=== PATIENT | male | born 1950 | race Caucasian/White ===

== ENCOUNTER 2018-12-09 05:51 | Day surgery (SDC) | payer MEDICARE ==
[~2018-12-09] VITALS: Ht 180.3 cm; Wt 73.1 kg
[~2018-12-09 05:51] MED LIST: ALBU3IS INH; BACL10 PO; Bystolic PO; CHLO25B PO; CLOP75 GT; CLOP75 PO; CLOT10; CLOT10 SUSW; DOC100SO PO; DOCUSATE GT; FERSU220EL PEG; FIBERSOURCE; INSULANI SC; LOSA50 PO; LOSHYD100 PO; LOVA40 PO; METF500 GT; METF500 PO; METO25ER GT; METO25ER PO; MULVITMIND PO; MULVITMINF GT; Mobic15 MG PO; NEBI10 GT; NEBI10 PO; NIFE30ER PO; NITR100CA GT; OXYC1L PO; OXYCODONE; RANI150EL PO; RANITIDINE; TAMS.4ER GT; TAMS.4ER PO; TEMA15 PO; TEMA30 PO; THERA1 EACH PO; [UNRECOGNIZED DRUG - OTHER]
--- NOTE | 2018-12-09 06:50 | NUR ---
[facility]TO [facility] ADMISSION TO UNIT STARTED. History, Chart, Medications and Allergies reviewed before start of procedure.Patient confirms NPO status and agrees with scheduled surgery. Patient States Post-Procedure ride home has been arranged.
--- NOTE | 2018-12-09 10:17 | NUR ---
Pt gave verbal consent to access records on 12/09/2018
== END 2018-12-09 23:03 | disposition home or self-care (01) ==
LOC: ORSCMMR 05:51 → ORD 07:30 → ORSCMMR 07:30
PROVIDERS: Surgery
PROC: 0H88XZZ Division of Buttock Skin, External Approach (ICD-10-PCS; principal; 2018-12-09 07:30)
DX: K61.0 Anal abscess (principal); I10 Essential (primary) hypertension; E11.9 Type 2 diabetes mellitus without complications; I69.365 Other paralytic syndrome following cerebral infarction, bilateral; G82.50 Quadriplegia, unspecified; Z79.899 Other long term (current) drug therapy
CPT/HCPCS: 82947; A9270-GY; J1100; J1885; J1956; J2370; J2405; J2704; J3010; J7120

== ENCOUNTER 2018-12-20 10:11 | Observation (INO) | payer MEDICARE ==
[~2018-12-20] VITALS: Ht 180.3 cm; Wt 71.0 kg
[~2018-12-20 10:11] MED LIST changes: -LOSA50 PO; +LOSARTAN POTAS100 MG PO; -LOVA40 PO; +Lovastatin20 MG PO; -Mobic15 MG PO; -TEMA30 PO
[2018-12-20 10:45] LABS: BASOPHILS ABSOLUTE AUTO 0.02 K/mm3 (0.00-0.23); BASOPHILS PERCENT AUTO 0 % (0-2); EOSINOPHILS PERCENT AUTO 0 % (0-6); Hematocrit 43.8 % (37.0-53.0); IMMATURE GRAN ABSOLUTE AUTO 0.03 K/mm3 (0.00-0.10); IMMATURE GRAN PERCENT AUTO 0 % (0-1); LYMPHOCYTES ABSOLUTE AUTO 0.19 K/mm3 (0.84-5.20); LYMPHOCYTES PERCENT AUTO 2 % (21-46); MONOCYTES ABSOLUTE AUTO 0.28 K/mm3 (0.16-1.47); MONOCYTES PERCENT AUTO 3 % (4-13); Mean Corpuscular HGB 31.1 pg (26.0-34.0); Mean Corpuscular HGB Conc 34.2 g/dL (31.5-36.5); Mean Corpuscular Volume 91 fL (80-100); NEUTROPHILS ABSOLUTE AUTO 8.76 K/mm3 (1.96-9.15); NEUTROPHILS PERCENT AUTO 95 % (41-73); Platelet Count 168 K/mm3 (150-400); RDW Coefficient Variation 11.9 % (11.7-14.2); RDW Standard Deviation 39.8 fL (35.1-46.3); Red Blood Cell Count 4.82 M/mm3 (4.30-5.90); White Blood Cell Count 9.28 K/mm3 (4.00-11.30)
[2018-12-20 11:07] LABS: Alanine Aminotransfer (ALT/SGP 39 U/L (12-78); Albumin, Blood 3.2 g/dL (3.4-5.0); Albumin/Globulin Ratio 1.3 (0.8-1.8); Alk Phos 87 U/L (50-136); Anion Gap 8 mmol/L (6-16); Aspartate Aminotrans (AST/SGOT 36 U/L (12-37); Blood Urea Nitrogen 25 mg/dL (8-24); Bun/Creatinine Ratio 23.4 (12.0-20.0); CO2, Blood 25 mmol/L (21-32); Calcium, Blood 8.1 mg/dL (8.5-10.1); Chloride, Blood 105 mmol/L (98-108); Creatinine, Blood 1.07 mg/dL (0.60-1.20); Globulin, Blood 2.5 g/dL (2.2-4.0); Glomerular Filtration Rate >60 (60-); Glucose, Blood 177 mg/dL (70-99); Potassium, Blood 3.2 mmol/L (3.5-5.5); Sodium, Blood 138 mmol/L (136-145); Total Protein, Blood 5.7 g/dL (6.4-8.2)
[2018-12-20] MEDS ORDERED: Mobic15 MG PO (14:04)
[2018-12-20] MEDS ORDERED: TEMA30 PO (14:04)
--- NOTE | 2018-12-20 18:31 | NUR ---
SHIFT SUMMARY: PATIENT ADMITTED FROM ED APPROX 1515 VIA STRETCHER AND WAS ASSISTED TO BED AND ORIENTED TO ROOM AND UNIT AND CALL LIGHT, AND DAUGHTER AT BEDSIDE. PATIENT DENIES ANY PAIN OR DISCOMFORT. FINE CRACKLES AUSCULTATED IN THE LLL AND DIM IN OTHER LOBES. NO SOB. IV FLIUDS STARTED VIA PERIPHERAL LINE TO LEFT WRIST WITH NO ISSUES. PATIENT IS A/O X 4 AND IS ABLE TO MAKE HIS NEEDS KNOWN.
[2018-12-21 05:58] LABS: BASOPHILS ABSOLUTE AUTO 0.02 K/mm3 (0.00-0.23); BASOPHILS PERCENT AUTO 0 % (0-2); EOSINOPHILS ABSOLUTE AUTO 0.06 K/mm3 (0.00-0.68); EOSINOPHILS PERCENT AUTO 1 % (0-6); Hematocrit 37.1 % (37.0-53.0); Hemoglobin 12.5 g/dL (13.5-17.5); IMMATURE GRAN ABSOLUTE AUTO 0.01 K/mm3 (0.00-0.10); IMMATURE GRAN PERCENT AUTO 0 % (0-1); LYMPHOCYTES ABSOLUTE AUTO 0.84 K/mm3 (0.84-5.20); LYMPHOCYTES PERCENT AUTO 14 % (21-46); MONOCYTES ABSOLUTE AUTO 0.42 K/mm3 (0.16-1.47); MONOCYTES PERCENT AUTO 7 % (4-13); Mean Corpuscular HGB 31.4 pg (26.0-34.0); Mean Corpuscular HGB Conc 33.7 g/dL (31.5-36.5); Mean Corpuscular Volume 93 fL (80-100); Mean Platelet Volume 9.6 fL (9.1-12.4); NEUTROPHILS ABSOLUTE AUTO 4.56 K/mm3 (1.96-9.15); NEUTROPHILS PERCENT AUTO 77 % (41-73); Platelet Count 155 K/mm3 (150-400); RDW Coefficient Variation 11.9 % (11.7-14.2); RDW Standard Deviation 41.2 fL (35.1-46.3); Red Blood Cell Count 3.98 M/mm3 (4.30-5.90); White Blood Cell Count 5.91 K/mm3 (4.00-11.30)
[2018-12-21 06:13] LABS: Anion Gap 4 mmol/L (6-16); Blood Urea Nitrogen 18 mg/dL (8-24); Bun/Creatinine Ratio 21.3 (12.0-20.0); CO2, Blood 25 mmol/L (21-32); Calcium, Blood 7.8 mg/dL (8.5-10.1); Chloride, Blood 110 mmol/L (98-108); Creatinine, Blood 0.85 mg/dL (0.60-1.20); Glomerular Filtration Rate >60 (60-); Glucose, Blood 121 mg/dL (70-99); Potassium, Blood 3.4 mmol/L (3.5-5.5); Sodium, Blood 139 mmol/L (136-145)
--- NOTE | 2018-12-21 07:26 | NUR ---
12/21/18 0600 SLEPT POOR EVEN WITH SLEEPER. STATEES HE COULDN'T GET COMFORTABLE. MD WAS CALLED AND PT WAS MEDICATED WITH PAIN MED. VITALS STABLE. O2 REMAINS AT 2LPM VIA N/C. TLEMETRY ALSO REMAINS STABLE.
--- NOTE | 2018-12-21 18:04 | NUR ---
SHIFT SUMMARY: PATIENT A/O X 4 AT BASELINE TODAY. NO C/O PAIN. PATIENT REPORTS AN INCREASED APPETITE TODAY. CBGS REMAIN WNL WITH NO S/S OF HYPER/HYPOGLYCEMIA. RECEIVED ORDER FOR STOOL SAMPLE TO R/U C-DIFF AND PATIENT PLACED ON CONTACT PRECAUTIONS, EDUCATION PROVIDED TO PATIENT AND FAMILY ABOUT HAND WASHING, RESULTS STILL PENDING. RECEIVED ORDER TO DC TELE. REMAINS AT BEDSIDE ON AND OFF THROUGHOUT THE SHIFT. IV ABO INFUSED VIA PERIPHERAL LINE IN LEFT WRIST WITH NO ISSUES. PATIENT WORKED WITH THERAPIES TODAY AND REPORTED FEELING BETTER AFTER. PATIENT IS RESTING IN BED.
[2018-12-21 21:51] LABS: C DIFFICILE BY DNA AMP Positive (Negative)
--- NOTE | 2018-12-22 01:15 | NUR ---
12/22/18 0110 PT SLEEPING WELL DURING ROUTINE ROUNDS. NO DISTRESS NOTED.
[2018-12-22 06:18] LABS: Albumin, Blood 2.6 g/dL (3.4-5.0); Anion Gap 6 mmol/L (6-16); Blood Urea Nitrogen 9 mg/dL (8-24); Bun/Creatinine Ratio 11.6 (12.0-20.0); CO2, Blood 23 mmol/L (21-32); Calcium, Blood 7.9 mg/dL (8.5-10.1); Chloride, Blood 115 mmol/L (98-108); Creatinine, Blood 0.78 mg/dL (0.60-1.20); Glomerular Filtration Rate >60 (60-); Glucose, Blood 101 mg/dL (70-99); Magnesium, Blood 2.1 mg/dL (1.6-2.4); Potassium, Blood 3.1 mmol/L (3.5-5.5); Sodium, Blood 144 mmol/L (136-145)
--- NOTE | 2018-12-22 06:43 | NUR ---
12/22/18 0600 AWAKENED FOR AM MED AND IV BAG. STATES THIS WAS THE BEST NIGHT SLEEP HE HAS HAD "IN A LONG TIME." VITALS STABLE.
--- NOTE | 2018-12-22 17:13 | NUR ---
SHIFT SUMMARY THE PATIENT PRESENTED THIS SHIFT A&O X4, WITH VITALS WNL AND DIMINISHED LUNG SOUNDS. THE PATIENT HAS BEEN UP TO HIS CHAIR TODAY FOR ABOUT 3 HOURS. THE PATIENT'S SPOUSE HAS BEEN IN THE ROOM WITH THE PATIENT FOR MOST OF THE SHIFT. THE PATIENT HAS USED HIS CALL LIGHT NEEDED. THE PATIENT IS RESTING IN BED AT THIS TIME, WILL CONTINUE TO MONITOR.
--- NOTE | 2018-12-23 04:43 | NUR ---
SHIFT SUMMARY PT A/O. CALLED APPROPRIATELY. REMAINED IN BED THIS EVENING BUT REPORTS THAT HE HAS BEEN HAVING A HARDER TIME WITH MOVMENT SINCE "HE GOT SICK". CONTINUES TO HAVE LOOSE STOOL. INCONTINENT OF STOOL. USED URINAL WHILE IN BED. PT ON RA. RESPIRATIONS EVEN AND UNLABORED. LUNG SOUNDS DIM. OVERALL NO ACUTE CHANGES. PT DID NOT FALL ASLEEP UNTIL LATER IN THE SHIFT AND ONLY SLEPT FOR SEVERAL HOURS AT A TIME OFF AND ON. DENIES PAIN. RESTING COMFORTABLY IN BED AT THIS TIME. WILL CONTINUE TO MONITOR.
[2018-12-23 06:30] LABS: Hematocrit 35.8 % (37.0-53.0); Hemoglobin 11.8 g/dL (13.5-17.5)
[2018-12-23 06:52] LABS: Anion Gap 5 mmol/L (6-16); Blood Urea Nitrogen 7 mg/dL (8-24); CO2, Blood 26 mmol/L (21-32); Chloride, Blood 116 mmol/L (98-108); Creatinine, Blood 0.88 mg/dL (0.60-1.20); Glomerular Filtration Rate >60 (60-); Glucose, Blood 104 mg/dL (70-99); Magnesium, Blood 2.1 mg/dL (1.6-2.4); Phosphorus, Blood 2.6 mg/dL (2.5-4.9); Potassium, Blood 3.3 mmol/L (3.5-5.5); Sodium, Blood 147 mmol/L (136-145)
[2018-12-23] MEDS ORDERED: CEFU500T30 PO (10:04)
[2018-12-23] MEDS ORDERED: Acetaminophen325 M1 PO (10:04)
[2018-12-23] MEDS ORDERED: Florastor250 MG PO (10:05)
--- NOTE | 2018-12-23 12:30 | NUR ---
DISCHARGE INSTRUCTIONS COMPLETED AND DISCUSSED WITH PT EXPRESSING UNDERSTANDING. SCRIPTS FAXED TO [facility] PER WIFES REQUEST. APPT. MADE FOR FOLLOW UP. DRESSED HIM AND HE WAS ASSISTED TO HIS W/C. TO [facility] IN HIS OWN CHAIR WITH IN ATTENDANCE.
== END 2018-12-23 12:21 | disposition home or self-care (01) ==
LOC: ER 10:11 → MEDS 10:12 → ER 13:48 → MEDS 13:48 → ENPENDDIS 12-23 09:59 → MEDS 12-23 12:21
PROVIDERS: Emergency Medicine; ADMIT Internal Medicine
DX: J18.9 Pneumonia, unspecified organism (principal); C91.10 Chronic lymphocytic leukemia of B-cell type not having achieved remission; R19.7 Diarrhea, unspecified; R11.2 Nausea with vomiting, unspecified; E86.0 Dehydration; E87.1 Hypo-osmolality and hyponatremia; I69.398 Other sequelae of cerebral infarction; G82.20 Paraplegia, unspecified; E46 Unspecified protein-calorie malnutrition; E11.9 Type 2 diabetes mellitus without complications; Z99.3 Dependence on wheelchair
CPT/HCPCS: 36415; 71045; 80048; 80053; 80069; 82947; 83605; 83735; 84100; 85014; 85018; 85025; 87324; 87493; 93005; 93010; 94640; 94760; 96365; 96367; 97162; 97166; 97530; 97535; 99285-25; J0456; J0696; J1650; J7030; J7050; J7060

== ENCOUNTER → 2018-12-31 | Outpatient (CLI) | payer MEDICARE ==
[~2018-12-31] MED LIST changes: +Acetaminophen325 M1 PO; +CEFU500T30 PO; +Florastor250 MG PO; +Mobic15 MG PO; +TEMA30 PO
== END | disposition home or self-care (01) ==
LOC: LAB 11:34 → LAB SHORT 11:34 → LAB FUT 12-31 14:35
DX: A04.72 Enterocolitis due to Clostridium difficile, not specified as recurrent (principal)
CPT/HCPCS: 87493

== ENCOUNTER 2019-07-23 19:37 | Emergency (ER) | payer MEDICARE ==
[~2019-07-23] VITALS: Ht 180.3 cm; Wt 72.6 kg
[2019-07-23] MEDS ORDERED: CYCL10 PO (21:18)
[2019-07-23] MEDS ORDERED: LIDO700A20 TOP (21:18)
== END 2019-07-23 21:45 | disposition home or self-care (01) ==
LOC: ER 19:37
DX: S39.012A Strain of muscle, fascia and tendon of lower back, initial encounter (principal); M54.41 Lumbago with sciatica, right side; E11.9 Type 2 diabetes mellitus without complications; I10 Essential (primary) hypertension; Z79.899 Other long term (current) drug therapy; Z79.01 Long term (current) use of anticoagulants; Z86.73 Personal history of transient ischemic attack (TIA), and cerebral infarction without residual deficits; X50.1XXA Overexertion from prolonged static or awkward postures, initial encounter; Y93.E8 Activity, other personal hygiene
CPT/HCPCS: 72100; 99283-25; A9270; J1100

== ENCOUNTER → 2023-02-20 | Outpatient (CLI) | payer MEDICARE ==
[~2023-02-20] MED LIST changes: +CYCL10 PO; +LIDO700A20 TOP
== END | disposition home or self-care (01) ==
LOC: LAB SHORT 15:08 → LAB 15:08
DX: E11.9 Type 2 diabetes mellitus without complications (principal)
CPT/HCPCS: 83036

== ENCOUNTER → 2023-02-26 | Outpatient (CLI) | payer MEDICARE ==
[2023-02-26 15:46] LABS: BASOPHILS ABSOLUTE AUTO 0.04 K/mm3 (0.00-0.23); BASOPHILS PERCENT AUTO 1 % (0-2); EOSINOPHILS ABSOLUTE AUTO 0.07 K/mm3 (0.00-0.68); EOSINOPHILS PERCENT AUTO 1 % (0-6); Hematocrit 46.7 % (37.0-53.0); Hemoglobin 16.3 g/dL (13.5-17.5); IMMATURE GRAN ABSOLUTE AUTO 0.03 K/mm3 (0.00-0.10); IMMATURE GRAN PERCENT AUTO 0 % (0-1); LYMPHOCYTES ABSOLUTE AUTO 3.57 K/mm3 (0.84-5.20); LYMPHOCYTES PERCENT AUTO 41 % (21-46); MONOCYTES ABSOLUTE AUTO 0.28 K/mm3 (0.16-1.47); MONOCYTES PERCENT AUTO 3 % (4-13); Mean Corpuscular HGB Conc 34.9 g/dL (31.5-36.5); Mean Corpuscular Volume 89 fL (80-100); Mean Platelet Volume 9.6 fL (9.1-12.4); NEUTROPHILS ABSOLUTE AUTO 4.78 K/mm3 (1.96-9.15); NEUTROPHILS PERCENT AUTO 55 % (41-73); Platelet Count 180 K/mm3 (150-400); RDW Coefficient Variation 12.1 % (11.7-14.2); RDW Standard Deviation 39.5 fL (35.1-46.3); Red Blood Cell Count 5.26 M/mm3 (4.30-5.90); White Blood Cell Count 8.77 K/mm3 (4.00-11.30)
[2023-02-26 17:07] LABS: Free Thyroxine 0.99 ng/dL (0.70-1.60)
[2023-02-26 17:35] LABS: Thyroid Stimulating Hormone 1.33 uIU/mL (0.360-4.800)
== END | disposition home or self-care (01) ==
LOC: LAB SHORT 12:13 → LAB 12:13
PROVIDERS: Physician Assistant
DX: F03.90 Unspecified dementia, unspecified severity, without behavioral disturbance, psychotic disturbance, mood disturbance, and anxiety (principal)
CPT/HCPCS: 82607; 82746; 84439; 84443; 85025; 85651

== ENCOUNTER 2024-03-24 19:49 | Emergency (ER) | payer MEDICARE ==
[~2024-03-24] VITALS: Ht 177.8 cm; Wt 65.8 kg
[~2024-03-24 19:49] MED LIST changes: +ADALAT CC30 M1 PO; +DONEPEZIL HCL5 M2 PO; +FLOMAX0.4 MG PO; +KLOR-CON 1010 ME1 PO; +Naproxen375 MG PO; +TIZANIDINE HCL2 M1 PO
[2024-03-24 20:33] LABS: Bilirubin, Total 0.4 mg/dL (0.1-1.0); Bun/Creatinine Ratio 21.5 (12.0-20.0); Calcium, Blood 9.1 mg/dL (8.5-10.1); Creatinine, Blood 0.84 mg/dL (0.60-1.20); Globulin, Blood 3.1 g/dL (2.2-4.0); Potassium, Blood 4.3 mmol/L (3.5-5.5); Total Protein, Blood 6.1 g/dL (6.4-8.2)
[2024-03-24 20:46] LABS: Source, Urine Foley catheter
[2024-03-24 20:56] LABS: Appearance, Urine Bloody (Clear); Bilirubin, Urine Neg (Neg); Blood, Urine 5+ (Neg); Color, Urine Red (P-Yellow); Glucose Qualitative, Urine Neg (Neg); Ketones, Urine 1+ (Neg); Leukocyte Esterase, Urine Neg (Neg); Nitrite, Urine Neg (Neg); Protein, Urine 4+ (Neg); Urobilinogen, Urine NORM (Normal)
[2024-03-24 21:07] LABS: Bacteria Many /hpf; Red Blood Cells, Urine TNTC /hpf (0-2); Squamous Epithelial Cells Rare /hpf (Few); White Blood Cells, Urine 25-50 /hpf (0-5)
[2024-03-24] MEDS ORDERED: CEFD300 PO (21:14)
[2024-03-24] MEDS ORDERED: CefTRIAXone Sodium 1,000 MG in NS 100 ML IV ONE (21:15)
[2024-03-24 21:30] VITALS: BP 115/87
== END 2024-03-24 22:04 | disposition home or self-care (01) ==
LOC: ER 19:49
PROVIDERS: Emergency Medicine
DX: R31.0 Gross hematuria (principal); N39.0 Urinary tract infection, site not specified; I69.351 Hemiplegia and hemiparesis following cerebral infarction affecting right dominant side; I10 Essential (primary) hypertension; E11.9 Type 2 diabetes mellitus without complications; F17.290 Nicotine dependence, other tobacco product, uncomplicated; Z96.0 Presence of urogenital implants; Z79.899 Other long term (current) drug therapy
CPT/HCPCS: 51798; 80053; 81001; J0696

== ENCOUNTER 2024-03-26 13:56 | Inpatient (IN) | payer MEDICARE ==
[~2024-03-26] VITALS: Ht 180.3 cm; Wt 71.8 kg
[~2024-03-26 13:56] MED LIST changes: +CEFD300 PO
[2024-03-26 14:40] LABS: Hematocrit 31.3 % (37.0-53.0); Hemoglobin 10.3 g/dL (13.5-17.5); Mean Corpuscular HGB 30.8 pg (26.0-34.0); Mean Corpuscular HGB Conc 32.9 g/dL (31.5-36.5); Mean Corpuscular Volume 94 fL (80-100); Mean Platelet Volume 9.7 fL (9.1-12.4); Platelet Count 179 K/mm3 (150-400); RDW Coefficient Variation 13.9 % (11.7-14.2); RDW Standard Deviation 46.5 fL (35.1-46.3); Red Blood Cell Count 3.34 M/mm3 (4.30-5.90); White Blood Cell Count 49.42 K/mm3 (4.00-11.30)
[2024-03-26 15:05] LABS: Albumin, Blood 2.4 g/dL (3.4-5.0); Bilirubin, Total 0.7 mg/dL (0.1-1.0); Bun/Creatinine Ratio 22.8 (12.0-20.0); Calcium, Blood 8.6 mg/dL (8.5-10.1); Creatinine, Blood 0.79 mg/dL (0.60-1.20); Globulin, Blood 2.5 g/dL (2.2-4.0); Magnesium, Blood 1.7 mg/dL (1.6-2.4); Potassium, Blood 3.9 mmol/L (3.5-5.5); Total Protein, Blood 4.9 g/dL (6.4-8.2)
[2024-03-26] MEDS ORDERED: Piperacillin/Tazobactam Sod 4.5 GM in NS 100 ML IV ONE (15:15)
[2024-03-26] MEDS ORDERED: Vancomycin HCL 1,500 MG in NS 250 ML IV ONE (15:15)
[2024-03-26 15:25] LABS: BASOPHILS PERCENT MAN 0 % (0-2); EOSINOPHILS PERCENT MAN 0 % (0-6); LYMPHOCYTES ABSOLUTE MAN 38.54 K/mm3 (0.84-5.20); LYMPHOCYTES PERCENT MAN 78 % (21-46); MONOCYTES ABSOLUTE MAN 0.49 K/mm3 (0.16-1.47); MONOCYTES PERCENT MAN 1 % (4-13); NEUTROPHILS ABSOLUTE MAN 10.37 K/mm3 (1.96-9.15); SEG NEUTROPHILS PERCENT MAN 21 % (41-73); TOTAL CELLS COUNTED 100
[2024-03-26 15:40] LABS: Source, Urine Foley catheter
[2024-03-26 15:44] LABS: Influenza A, PCR NEGATIVE (NEGATIVE); Influenza B, PCR NEGATIVE (NEGATIVE); Resp Syncytial Virus, PCR NEGATIVE (NEGATIVE); SARS-Cov-2 (COVID-19) PCR, MMC NEGATIVE (NEGATIVE)
[2024-03-26 15:49] LABS: Appearance, Urine Cloudy (Clear); Bilirubin, Urine Neg (Neg); Blood, Urine 5+ (Neg); Color, Urine Red (P-Yellow); Glucose Qualitative, Urine Neg (Neg); Ketones, Urine Neg (Neg); Leukocyte Esterase, Urine 3+ (Neg); Nitrite, Urine Pos (Neg); Protein, Urine 3+ (Neg); Urobilinogen, Urine NORM (Normal)
[2024-03-26 16:16] LABS: Bacteria Many /hpf; Red Blood Cells, Urine TNTC /hpf (0-2); Squamous Epithelial Cells Not Seen /hpf (Few); White Blood Cells, Urine 25-50 /hpf (0-5)
[2024-03-26] MEDS ORDERED: TiZANidine HCl 4 MG Tab PO PRN (18:05)
[2024-03-26] MEDS ORDERED: Acetaminophen 325 MG TABLET PO PRN ×2 (18:05→18:10)
[2024-03-26] MEDS ORDERED: Lactated Ringer's 1,000 ML IV SCH (18:10)
[2024-03-26] MEDS ORDERED: Magnesium Hydroxide Conc 10 ML UDC PO PRN (18:10)
[2024-03-26] MEDS ORDERED: Doxycycline Hyclate 100 MG in Dextrose 5% 250 ML IV SCH (19:00)
[2024-03-26] MEDS ORDERED: Azithromycin 500 MG in NS 250 ML IV SCH (19:00)
[2024-03-26] MEDS ORDERED: Piperacillin/Tazobactam Sod 3.375 GM in NS 100 ML IV SCH (20:00)
[2024-03-26] MEDS ORDERED: Insulin Regular 100 UNIT/ML 10ML Vial SC SCH (21:00)
[2024-03-26] MEDS ORDERED: Atorvastatin 10 MG Tab PO SCH (21:00)
[2024-03-26] MEDS ORDERED: Lactobacil 2-S.Thermo-Bifido 1 1 Cap PO SCH (21:00)
[2024-03-26] MEDS ORDERED: Donepezil HCl 5 MG Tab PO SCH (21:00)
[2024-03-26] MEDS ORDERED: Baclofen 10 MG Tab PO SCH (21:00)
[2024-03-26] MEDS ORDERED: NS 250 ML IV PRN (21:20)
[2024-03-26 21:50] VITALS: BP 114/69
[2024-03-27 05:57] LABS: Hematocrit 30.2 % (37.0-53.0); Hemoglobin 9.8 g/dL (13.5-17.5); Mean Corpuscular HGB 30.5 pg (26.0-34.0); Mean Corpuscular HGB Conc 32.5 g/dL (31.5-36.5); Mean Corpuscular Volume 94 fL (80-100); Mean Platelet Volume 10.1 fL (9.1-12.4); Platelet Count 147 K/mm3 (150-400); RDW Coefficient Variation 13.6 % (11.7-14.2); RDW Standard Deviation 46.5 fL (35.1-46.3); Red Blood Cell Count 3.21 M/mm3 (4.30-5.90); White Blood Cell Count 36.24 K/mm3 (4.00-11.30)
[2024-03-27 05:59] VITALS: BP 114/61
[2024-03-27 06:28] LABS: Albumin, Blood 2.2 g/dL (3.4-5.0); Albumin/Globulin Ratio 0.8 (0.8-1.8); Bilirubin, Total 0.7 mg/dL (0.1-1.0); Calcium, Blood 8.7 mg/dL (8.5-10.1); Creatinine, Blood 0.81 mg/dL (0.60-1.20); Globulin, Blood 2.6 g/dL (2.2-4.0); Potassium, Blood 3.7 mmol/L (3.5-5.5); Total Protein, Blood 4.8 g/dL (6.4-8.2)
--- NOTE | 2024-03-27 06:43 | NUR ---
SHIFT SUMMARY NOC PT A/O X 3. SLOW TO RESPOND AT TIMES. WHEELCHAIR BASELINE, BUT BEDREST CURRENTLY DUE TO INCREASED WEAKNESS. HX OF CVA. VSS. PLEASANT AND COOPERATIVE WITH CARE. CHRONIC CAPPS IN PLACE THAT WAS REPLACED IN ED, PT ARRIVED ON UNIT WITH HEMATURIA THAT HAS SINCE RESOLVED. PT RECEIVING IV ABX FOR UTI AND SUSPECTED PNA. LR INFUSING @ 75 ML/HR X 1 BAG. PT DM2 DIET CONTROLLED HS CBG 185 WITH CNI. PT DAUGHTER AT BEDSIDE. PT HAS SLEPT SINCE ARRIVING TO UNIT. PT HAD INCONTINENT BM UPON ARRIVAL. PT CURRENTLY RESTING WITH BED IN LOWEST POSITION, AND CALL LIGHT WITHIN REACH.
[2024-03-27 07:02] LABS: BAND PERCENT MAN 1 % (0-8); BASOPHILS PERCENT MAN 0 % (0-2); EOSINOPHILS PERCENT MAN 0 % (0-6); LYMPHOCYTES ABSOLUTE MAN 22.46 K/mm3 (0.84-5.20); LYMPHOCYTES PERCENT MAN 62 % (21-46); MONOCYTES ABSOLUTE MAN 0.36 K/mm3 (0.16-1.47); MONOCYTES PERCENT MAN 1 % (4-13); SEG NEUTROPHILS PERCENT MAN 36 % (41-73); TOTAL CELLS COUNTED 100
[2024-03-27 07:29] VITALS: BP 110/68
[2024-03-27] MEDS ORDERED: Potassium Chloride 10 Meq Tablet SA PO SCH (08:00)
[2024-03-27] MEDS ORDERED: Clopidogrel Bisulfate 75 MG Tab PO SCH (09:00)
[2024-03-27] MEDS ORDERED: Lidocaine 4% 1 Patch TOP SCH (09:00)
[2024-03-27] MEDS ORDERED: Enoxaparin 40 MG/0.4 ML SYR SC SCH (09:00)
[2024-03-27] MEDS ORDERED: Tamsulosin HCl 0.4 MG Cap PO SCH (09:00)
[2024-03-27 14:56] VITALS: BP 102/58
--- NOTE | 2024-03-27 18:04 | NUR ---
SHIFT SUMMARY PT CONT LEVEL OF CARE. PT IS A&O X2-3 AND EVERY TWO HOUR REPOSITION. PT HAS A CONSULT WITH ONCOLOGY PROVIDER CALLED AND SPOKE WITH ONCOLOGY PROVIDER RE: PT CLL. PT HAS HAD FAMILY IN AND OUT OF ROOM THROUGHOUT THIS SHIFT. CATH REMAINS IN PLACE AND DRAINING YELLOW URINE.
[2024-03-27 20:54] VITALS: BP 123/64
[2024-03-28 03:56] VITALS: BP 129/72
--- NOTE | 2024-03-28 06:02 | NUR ---
SHIFT SUMMARY NOC PT A/O X 2. PLEASANTLY CONFUSED AND FORGETFUL AT TIMES. VSS. NO ACUTE CHANGES TO REPORT. CAPPS IN PLACE DRAINING YELLOW URINE WITH OCCASIONAL BLOOD CLOTS, LINE FLUSHES WITH 20 ML STERILE WATER. PT HAS ONCOLOGY CONSULT ORDERED WITH DR HOWELL FOR CLL VS ALL. PT INC OF BM X 1. PT CURRENTLY RESTING WITH BED IN LOWEST POSITION, AND CALL LIGHT WITHIN REACH.
--- NOTE | 2024-03-28 06:03 | NUR ---
SHIFT SUMMARY NOC PT A/O X 2. PLEASANTLY CONFUSED AND FORGETFUL AT TIMES. VSS. NO ACUTE CHANGES TO REPORT. CAPPS IN PLACE DRAINING MAR[place] URINE WITH OCCASIONAL BLOOD CLOTS, LINE FLUSHES WITH 20 ML STERILE WATER. PT HAS ONCOLOGY CONSULT ORDERED WITH DR HOWELL FOR CLL VS ALL. PT INC OF BM X 1. PT CURRENTLY RESTING WITH BED IN LOWEST POSITION, AND CALL LIGHT WITHIN REACH.
[2024-03-28 06:17] LABS: Hematocrit 32.4 % (37.0-53.0); Hemoglobin 10.3 g/dL (13.5-17.5); Mean Corpuscular HGB 30.2 pg (26.0-34.0); Mean Corpuscular HGB Conc 31.8 g/dL (31.5-36.5); Mean Corpuscular Volume 95 fL (80-100); Mean Platelet Volume 10.3 fL (9.1-12.4); Platelet Count 147 K/mm3 (150-400); RDW Coefficient Variation 13.5 % (11.7-14.2); RDW Standard Deviation 46.7 fL (35.1-46.3); Red Blood Cell Count 3.41 M/mm3 (4.30-5.90)
[2024-03-28 06:37] LABS: Albumin, Blood 2.1 g/dL (3.4-5.0); Albumin/Globulin Ratio 0.7 (0.8-1.8); Bilirubin, Total 0.5 mg/dL (0.1-1.0); Bun/Creatinine Ratio 12.3 (12.0-20.0); Calcium, Blood 8.9 mg/dL (8.5-10.1); Creatinine, Blood 0.81 mg/dL (0.60-1.20); Globulin, Blood 3.1 g/dL (2.2-4.0); Potassium, Blood 3.8 mmol/L (3.5-5.5); Total Protein, Blood 5.2 g/dL (6.4-8.2)
[2024-03-28 08:00] VITALS: BP 140/72
[2024-03-28 08:53] LABS: BASOPHILS PERCENT MAN 0 % (0-2); EOSINOPHILS PERCENT MAN 0 % (0-6); LYMPHOCYTES ABSOLUTE MAN 22.23 K/mm3 (0.84-5.20); LYMPHOCYTES PERCENT MAN 68 % (21-46); MONOCYTES ABSOLUTE MAN 0.65 K/mm3 (0.16-1.47); MONOCYTES PERCENT MAN 2 % (4-13); NEUTROPHILS ABSOLUTE MAN 9.81 K/mm3 (1.96-9.15); SEG NEUTROPHILS PERCENT MAN 30 % (41-73); TOTAL CELLS COUNTED 100
[2024-03-28 16:57] VITALS: BP 138/66
--- NOTE | 2024-03-28 18:52 | NUR ---
PT CONT LEVEL OF CARE WITH NO ACUTE CHANGES NOTED THIS SHIFT. PT IS A&O X3 AND CONT TO REMAIN ON BEDREST ASSIST X2 WITH REPOSITIONING. PT CONT TO HAVE CAPPS CATH IN PLACE WITH RED DRAINAGE NOTED. PHYSICIAN AWARE WITH NO NEW ORDERS AT THIS TIME.
[2024-03-28] MEDS ORDERED: Ciprofloxacin 500 MG Tab PO SCH (21:00)
[2024-03-28 21:10] VITALS: BP 133/66
[2024-03-29 03:02] VITALS: BP 112/72
[2024-03-29 05:26] LABS: Hematocrit 33.8 % (37.0-53.0); Hemoglobin 10.9 g/dL (13.5-17.5); Mean Corpuscular HGB 30.4 pg (26.0-34.0); Mean Corpuscular HGB Conc 32.2 g/dL (31.5-36.5); Mean Corpuscular Volume 94 fL (80-100); Mean Platelet Volume 10.3 fL (9.1-12.4); Platelet Count 156 K/mm3 (150-400); RDW Coefficient Variation 13.3 % (11.7-14.2); RDW Standard Deviation 45.8 fL (35.1-46.3); Red Blood Cell Count 3.58 M/mm3 (4.30-5.90); White Blood Cell Count 32.72 K/mm3 (4.00-11.30)
[2024-03-29 05:57] LABS: Bun/Creatinine Ratio 11.3 (12.0-20.0); Calcium, Blood 9.1 mg/dL (8.5-10.1); Creatinine, Blood 0.79 mg/dL (0.60-1.20); Potassium, Blood 3.8 mmol/L (3.5-5.5)
[2024-03-29 06:24] LABS: BASOPHILS PERCENT MAN 0 % (0-2); EOSINOPHILS PERCENT MAN 0 % (0-6); LYMPHOCYTES PERCENT MAN 81 % (21-46); MONOCYTES PERCENT MAN 0 % (4-13); NEUTROPHILS ABSOLUTE MAN 6.21 K/mm3 (1.96-9.15); SEG NEUTROPHILS PERCENT MAN 19 % (41-73); TOTAL CELLS COUNTED 98
--- NOTE | 2024-03-29 06:24 | NUR ---
SHIFT SUMMARY NOC PT A/O X 3. PLEASANT AND COOPERATIVE WITH CARE. VSS. CBG 130 CNI. PT HAS CHRONIC CAPPS IN PLACE DRAINING RED URINE. PT PRESENTED TO ED WITH CAPPS IN PLACE AND BAG CHANGED OUT, PT ASKED IF THEY ARE SEEING A UROLOGIST OUTPATIENT, BUT PT UNSURE AND SAID THAT DAUGHTER WHO IS POA WOULD KNOW. THIS WILL BE PASSED ALONG TO DAY SHIFT TO DETERMINE IF CAPPS NEEDS TO BE CHANGED OR NOT. PT HAS BEEN TRANSITIONED TO PO ABX. PT HAS ONCOLOGY CONSULT WITH DR HOWELL REGARDING RECURRENT INFECTIONS/CLL. PT CURRENTLY RESTING WITH BED IN LOWEST POSITION, AND CALL LIGHT WITHIN REACH.
[2024-03-29 08:04] VITALS: BP 145/73
[2024-03-29] MEDS ORDERED: Piperacillin/Tazobactam Sod 4.5 GM in NS 100 ML IV SCH (16:00)
--- NOTE | 2024-03-29 16:05 | NUR ---
ORDER TO DC CAPPS CATHETER PATIENT ADMITTED WITH CAPPS CATHTER, WAS NOT REPLACED IN EMERGENCY ROOM, BUT BAG REPLACED IN EMERGENCY ROOM. CALLED DAUGHTER, ADVE, TO ASK IF PATIENT HAS UROLOGIST AND IF CAPPS WAS REPLACED RECENTLY. SHE STATES PATIENT HAS ONLY HAD CAPPS IN SINCE HIS LAST HOSPITALIZATION AND REQUESTED TO START VOIDING TRIAL. CALLED DR. TRAN AND RECIEVED TELEPHONE ORDERS TO REMOVE CAPPS CATHTER AND START PATIENT ON VOIDING TRIAL.
[2024-03-29 16:10] VITALS: BP 126/79
--- NOTE | 2024-03-29 17:07 | NUR ---
Spoke with both patient and daughter Rola today. The patient appears more confused than last hospital stay. He referred to Rola for any decisions needing to be made on his behalf. When speaking to Rola, she confirmed he is more confused than when we met previously. She is planning to take him home with [facility], and assist him as needed in his own home rather than placing pt into a halfway. She states she and her younger sister will divide up their time taking turns caring for patient with hospice assistant secretary. We are planning to meet in person tomorrow to work out the details.
--- NOTE | 2024-03-29 18:55 | NUR ---
SHIFT SUMMARY PATIENT A/OX4 WITH CONFUSION AND FORGETFULNESS. ABLE TO ANSWER QUESTIONS APPROPRIATELY INTERMITTENTLY. PATIENT REFUSING INSULIN TODAY AND FAMILY STATES PATIENT DOES NOT HAVE DM2. CAPPS CATHETER REMOVED PER ORDERS THIS AFTERNOON TO START VOIDING TRIAL. ATTENDS IN PLACE, PATIETN INCONTINENT OF BOWEL. NO OTHER CONCERS AT THIS TIME, REPORT GIVEN TO NIGHT NURSE.
[2024-03-29 19:27] VITALS: BP 131/85
[2024-03-29] MEDS ORDERED: NS 250 ML IV PRN (21:30)
--- NOTE | 2024-03-30 04:36 | NUR ---
SHIFT SUMMARY PT IS A&O X3-4, PLEASANTLY CONFUSED. PT HOB >40 DEGREES, PT RESTING T/O THE NIGHT. BLADDER SCAN REVEALED >600MLS RETENTION, CAPPS INSERTED W/O COMPLAINTS DURING THIS SHIFT PER ACTIVE ORDER (CAPPS WAS REMOVED ON PREVIOUS SHIFT D/T VOID TRIAL). URINE COLOR YELLOW. DRAINING WELL. HS TIZANADINE AND BACLOFEN HELPFUL PER PT REPORT. ABX IV INFUSED ORDERED. PT IS COOPERATIVE WITH CARE, KIND, AND ABLE TO MAKE HIS NEEDS KNOWN. NO ACUTE DISTRESS/EVENTS DURING THIS SHIFT. BED AT THE LOWEST POSITION, CALL LIGHT WITHIN REACH.
[2024-03-30 05:18] VITALS: BP 131/81
[2024-03-30 05:36] LABS: Hematocrit 34.6 % (37.0-53.0); Hemoglobin 11.1 g/dL (13.5-17.5); Mean Corpuscular HGB 30.2 pg (26.0-34.0); Mean Corpuscular HGB Conc 32.1 g/dL (31.5-36.5); Mean Corpuscular Volume 94 fL (80-100); Mean Platelet Volume 10.1 fL (9.1-12.4); Platelet Count 158 K/mm3 (150-400); RDW Coefficient Variation 13.3 % (11.7-14.2); RDW Standard Deviation 45.4 fL (35.1-46.3); Red Blood Cell Count 3.68 M/mm3 (4.30-5.90); White Blood Cell Count 34.22 K/mm3 (4.00-11.30)
[2024-03-30 06:06] LABS: Bun/Creatinine Ratio 13.5 (12.0-20.0); Calcium, Blood 9.3 mg/dL (8.5-10.1); Creatinine, Blood 0.89 mg/dL (0.60-1.20); Potassium, Blood 3.9 mmol/L (3.5-5.5)
[2024-03-30 06:45] LABS: BASOPHILS PERCENT MAN 0 % (0-2); EOSINOPHILS ABSOLUTE MAN 0.34 K/mm3 (0.00-0.68); EOSINOPHILS PERCENT MAN 1 % (0-6); LYMPHOCYTES ABSOLUTE MAN 26.34 K/mm3 (0.84-5.20); LYMPHOCYTES PERCENT MAN 77 % (21-46); MONOCYTES ABSOLUTE MAN 0.34 K/mm3 (0.16-1.47); MONOCYTES PERCENT MAN 1 % (4-13); NEUTROPHILS ABSOLUTE MAN 7.18 K/mm3 (1.96-9.15); SEG NEUTROPHILS PERCENT MAN 21 % (41-73); TOTAL CELLS COUNTED 100
[2024-03-30 08:46] VITALS: BP 121/82
[2024-03-30 16:10] VITALS: BP 135/76
--- NOTE | 2024-03-30 18:30 | NUR ---
SHIFT SUMMARY PATIENT ALERT AND INTERACTIVE. PATIENT REQUESTING PAIN MEDS FREQUENTLY THROUGHOUT THE SHIFT. PATIENT FORGETFUL AND NEEDING REMINDED WHEN HE HAD PAIN MEDS LAST. PATIENT TURNED FREQUENTLY AND FREQUENTLY INCONTINENT WITH SMALL STOOLS. PATIENT UNABLE TO SENSE FROM WASTE DOWN. PROVIDED EDUCATION RELATED TO PAIN MEDS AND RESPIRATORY STATUS. DISCHARGE PLANNING AND PALIATIVE CARE WORKING ON DISCHARGE PLAN. PATIENT UNSURE IF HE WANTS TO GO HOSPICE.
[2024-03-30 19:15] VITALS: BP 137/75
[2024-03-31 06:02] LABS: Hematocrit 36.5 % (37.0-53.0); Hemoglobin 11.6 g/dL (13.5-17.5); Mean Corpuscular HGB Conc 31.8 g/dL (31.5-36.5); Mean Corpuscular Volume 94 fL (80-100); Mean Platelet Volume 9.5 fL (9.1-12.4); Platelet Count 146 K/mm3 (150-400); RDW Coefficient Variation 13.4 % (11.7-14.2); RDW Standard Deviation 45.6 fL (35.1-46.3); Red Blood Cell Count 3.87 M/mm3 (4.30-5.90); White Blood Cell Count 28.96 K/mm3 (4.00-11.30)
[2024-03-31 06:22] VITALS: BP 127/91
[2024-03-31 06:36] LABS: Albumin, Blood 2.6 g/dL (3.4-5.0); Albumin/Globulin Ratio 0.8 (0.8-1.8); Bilirubin, Total 0.4 mg/dL (0.1-1.0); Bun/Creatinine Ratio 13.1 (12.0-20.0); Calcium, Blood 9.4 mg/dL (8.5-10.1); Creatinine, Blood 0.91 mg/dL (0.60-1.20); Globulin, Blood 3.3 g/dL (2.2-4.0); Potassium, Blood 4.2 mmol/L (3.5-5.5); Total Protein, Blood 5.9 g/dL (6.4-8.2)
[2024-03-31 07:15] LABS: BAND PERCENT MAN 1 % (0-8); BASOPHILS PERCENT MAN 0 % (0-2); EOSINOPHILS ABSOLUTE MAN 0.57 K/mm3 (0.00-0.68); EOSINOPHILS PERCENT MAN 2 % (0-6); LYMPHOCYTES ABSOLUTE MAN 22.58 K/mm3 (0.84-5.20); LYMPHOCYTES PERCENT MAN 78 % (21-46); MONOCYTES ABSOLUTE MAN 1.15 K/mm3 (0.16-1.47); MONOCYTES PERCENT MAN 4 % (4-13); NEUTROPHILS ABSOLUTE MAN 4.63 K/mm3 (1.96-9.15); SEG NEUTROPHILS PERCENT MAN 15 % (41-73); TOTAL CELLS COUNTED 100
[2024-03-31 07:26] VITALS: BP 144/66
--- NOTE | 2024-03-31 15:33 | NUR ---
Planned to meet with pt's daughter Rola yesterday, but unable to reach her. Spoke to her today by phone, and she states she and her sister are unable to care for the patient at home. The patient remains confused, and is unable to make decisions for himself. Rola request we change status to "comfort care. Orders being placed now, and CM will assume work on a dishcharge plan.
[2024-03-31 15:36] VITALS: BP 117/99
--- NOTE | 2024-03-31 18:00 | NUR ---
SHIFT SUMMARY PATIENT ALERT AND INTERACTIVE BUT CONFUSED AT TIMES. PATIENT MEDICATED FOR PAIN NEEDING. CAPPS CONTINUES TO DRAIN [place] YELLOW URINE. PATIENT IS HOPEFUL TO GET DISCHARGED SOON. CONTINUE TO GIVE IV ANTIBIOTICS. CASE MANAGEMENT WORKING ON DISCHARGE PLAN.
[2024-03-31 20:29] VITALS: BP 130/74
[2024-04-01 03:55] VITALS: BP 125/83
--- NOTE | 2024-04-01 06:49 | NUR ---
CALIBRATION SPECIALIST PATIENT IS A&OX4, VITALS ARE STABLE, NOT ON TELE. DENIED PAIN. HAS CAPPS CATHETER THAT IS DRAINING WELL. PATIENT IS ON BEDREST.
[2024-04-01] MEDS ORDERED: Acetaminophen 650 MG Supp PR PRN (07:45)
[2024-04-01] MEDS ORDERED: Atropine Sulfate 1% Opth Soln 2ML BTL SL PRN (07:45)
[2024-04-01] MEDS ORDERED: Scopolamine Hydrobromide Patch TOP PRN (07:45)
[2024-04-01] MEDS ORDERED: LORazepam 1 MG Tab PO PRN (07:45)
[2024-04-01] MEDS ORDERED: Morphine Sulfate 20 MG/1ML 1 ML Oral Syringe SL PRN (07:50)
--- NOTE | 2024-04-01 08:10 | NUR ---
STATUS CHANGE TO COMFORT CARE NEW COMFORT CARE ORDERS RCV'D BY . ORDERS PLACED ACCORDINGLY. MILL WORK, PRIMARY RN, RETAIL ADVERTISING SALES MANAGER NOTIFIED OF CHANGES.
--- NOTE | 2024-04-01 18:12 | NUR ---
SHIFT SUMMARY PT REMAINS A&O X4 THIS SHIFT WITH INTERMITTEN CONFUSION. PT HAS TRANSITIONED TO COMFORT CARE THIS SHIFT. PT HAS BEEN EDUCATED ON Q2HR REPOSITIONING BUT HAS REFUSED SEVERAL TIMES THROUGHTOUT THIS SHIFT STATEING THAT HE IS COMFOTABLE AND DOESNT WANT TO MOVE. IV HAS BEEN TAKEN OUT AND DC THIS SHIFT. FAMILY NOTED TO BE AT BEDSIDE OFF AND ON THROUGHOUT THIS SHIFT. CAPPS CATH REMAINS IN PLACE WITH YELLOW DRAINAGE NOTED.
[2024-04-02 07:49] VITALS: BP 147/67
--- NOTE | 2024-04-02 12:41 | NUR ---
Case Conference: Met with pt's daughter Rola, physician, CM and Palliative RN. Rola plans to take pt home with hospice in the next few days. She and CM are working out the final details.
[2024-04-02 15:35] VITALS: BP 132/88
--- NOTE | 2024-04-02 16:08 | NUR ---
SHIFT SUMMARY PT CONT LEVEL OF CARE WITH NO ACUTE CHANGES NOTED. PLAN IS FOR PT TO HAVE EQUIPMENT DELIVERED TO HIS HOUSE THIS WEEKEND AND DC EITHER FRIDAY OR FRIDAY WITH HOSPICE, CAREGIVERES AND DAUGHTERS TO HELP.
--- NOTE | 2024-04-03 06:49 | NUR ---
PT ON COMFORT CARE. NO ACUTE CHANGES DURING SHIFT, PT VERY PLEASANT, SLEPT MOST OF SHIFT.
[2024-04-03 07:57] VITALS: BP 123/74
[2024-04-03 16:26] VITALS: BP 127/70
--- NOTE | 2024-04-03 18:03 | NUR ---
SHIFT SUMMARY PATIENT IN BED THIS SHIFT. CAPPS IN PLACE, DRAINING TO GRAVITY. C/O SCIATIC PAIN RIGHT SIDE, LIDOCAINE PATCH PLACED. ACCEPTING OF TURNING AND POSITIONING ASSISTANCE. FAMILY IN TO VISIT THIS SHIFT. CALL LIGHT IN REACH, ABLE TO MAKE NEEDS KNOWN. CARES ONGOING.
--- NOTE | 2024-04-04 06:29 | NUR ---
PT STABLE. COMFORTABLE MOST OF SHIFT, AROUND 0530 PAINFUL TO [place]/HIP - ACETAMINOPHEN AND TIZANADINE ADMINISTERED, PT FELL BACK ASLEEP, APPEARS COMFORTABLE. PLAN DC FRIDAY.
--- NOTE | 2024-04-04 17:05 | NUR ---
SHIFT SUMMARY: PATIENT A/OX3, PLEASANT AND COOPERATIVE c CARE. COMFORT CARE MEASURES. REPORTS PAIN TO R HIP, LIDOCAINE PATCH IN PLACED c GOOD EFFECT. PATIENT HAS CHRONIC CAPPS, PATENT DRAINING TEA COLOR URINE TO GRAVITY. PATIENT HAD 1 LARGE BM THIS SHIFT, CATH/BRIJESH CARE, ATTENDS CHANGED AND REPOSITIONED T/O SHIFT. FAMILY IN ROOM VISITING T/O THE DAY. PATIENT HAS NO COMPLAINTS OR DENIES NEW CONCERNED THIS SHIFT. NO IV ACCESS PER ORDER. CALL LIGHT IN REACH.
--- NOTE | 2024-04-05 06:27 | NUR ---
NO ACUTE CHANGES DURING SHIFT. PLAN TO DC HOME TODAY.
[2024-04-05] MEDS ORDERED: ATROPINE SULFATE2 M1 SL (11:27)
[2024-04-05] MEDS ORDERED: CIPR500 PO (11:28)
[2024-04-05] MEDS ORDERED: LIDO700A20 TOP (11:28)
[2024-04-05] MEDS ORDERED: Ativan1 MG PO (11:29)
[2024-04-05] MEDS ORDERED: DULCOLAX400 MG/5 M PO (11:34)
[2024-04-05] MEDS ORDERED: MORP20L SL (11:35)
[2024-04-05] MEDS ORDERED: TRANSDERM-SCOP1 EA13 TD (11:36)
--- NOTE | 2024-04-05 11:43 | NUR ---
DISCHARGE PATIENT A&OX4, COOPERATIVE WITH CARE, PLEASANT. NO ACUTE CHANGES. DENIED ANY PAIN, CP/PRESSURE, HEADACHE, DIZZINESS, OR SOB. LUNGS DIMINISHED IN BASES. NO EDEMA. NECK PILLOW GIVEN TO PATIENT FOR COMFORT. DISCHARGE PACKET REVIEWED WITH PATIENT AND FAMILY MEMBER. DENIED ANY QUESTIONS OR CONCERNS.MEDICAL TRANSPORT PICKED PATIENT UP AT 1140.
== END 2024-04-05 11:35 | disposition hospice, home (50) | DRG 698 ==
LOC: ER 13:56 → ERHOLD 18:04 → MEDS 18:04
PROVIDERS: Emergency Medicine; Internal Medicine; ADMIT Internal Medicine
PROC: 3E03329 Introduction of Other Anti-infective into Peripheral Vein, Percutaneous Approach (ICD-10-PCS; principal; 2024-03-26)
PROC: 0T2BX0Z Change Drainage Device in Bladder, External Approach (ICD-10-PCS; 2024-03-26)
DX: T83.511A Infection and inflammatory reaction due to indwelling urethral catheter, initial encounter (principal); A41.81 Sepsis due to Enterococcus; G82.50 Quadriplegia, unspecified; J69.0 Pneumonitis due to inhalation of food and vomit; R65.20 Severe sepsis without septic shock; G93.41 Metabolic encephalopathy; C91.10 Chronic lymphocytic leukemia of B-cell type not having achieved remission; Z74.01 Bed confinement status; Z99.3 Dependence on wheelchair; N39.0 Urinary tract infection, site not specified; D64.9 Anemia, unspecified; Z66 Do not resuscitate; Z51.5 Encounter for palliative care; E11.9 Type 2 diabetes mellitus without complications; N40.0 Benign prostatic hyperplasia without lower urinary tract symptoms; D63.8 Anemia in other chronic diseases classified elsewhere; I10 Essential (primary) hypertension; Z98.890 Other specified postprocedural states; I69.369 Other paralytic syndrome following cerebral infarction affecting unspecified side; Z90.49 Acquired absence of other specified parts of digestive tract; Z79.02 Long term (current) use of antithrombotics/antiplatelets; Z79.899 Other long term (current) drug therapy; Y84.6 Urinary catheterization as the cause of abnormal reaction of the patient, or of later complication, without mention of misadventure at the time of the procedure
CPT/HCPCS: 0241U; 36415; 70450; 71045; 80048; 80053; 81001; 82947; 83605; 83735; 84145; 85007; 85025; 85027; 87040; 87077; 87086; 87186; 93005; 93010; 96365; 96366; 96367; 97166; 97530; 99285-25; A9270; J0456; J1650; J1815; J2543; J3370; J7050; J7060; J7120

== ENCOUNTER 2024-07-19 16:58 | Emergency (ER) | payer MEDICARE ==
[~2024-07-19] VITALS: Ht 180.3 cm; Wt 68.0 kg
[~2024-07-19 16:58] MED LIST changes: +ATROPINE SULFATE2 M1 SL; +Ativan1 MG PO; +CIPR500 PO; +DULCOLAX400 MG/5 M PO; +MORP20L SL; +TRANSDERM-SCOP1 EA13 TD
[2024-07-19 19:39] LABS: Source, Urine Foley catheter
[2024-07-19 19:43] LABS: Appearance, Urine Hazy (Clear); Bilirubin, Urine Neg (Neg); Blood, Urine 5+ (Neg); Color, Urine Red (P-Yellow); Glucose Qualitative, Urine Neg (Neg); Ketones, Urine 2+ (Neg); Leukocyte Esterase, Urine 3+ (Neg); Nitrite, Urine Pos (Neg); Protein, Urine 3+ (Neg); Urobilinogen, Urine NORM (Normal)
[2024-07-19 19:57] LABS: Bacteria Many /hpf; Red Blood Cells, Urine TNTC /hpf (0-2); Squamous Epithelial Cells Few /hpf (Few)
[2024-07-19 19:58] LABS: Calcium Oxalate Crystals Rare /hpf
[2024-07-19 20:01] LABS: White Blood Cells, Urine TNTC /hpf (0-5)
[2024-07-19] MEDS ORDERED: Trimethoprim/Sulfamethoxazole DS Tab PO ONE (20:05)
[2024-07-19] MEDS ORDERED: SULTRIDS PO (20:08)
[2024-07-19 23:00] VITALS: BP 164/82
== END 2024-07-19 23:40 | disposition home or self-care (01) ==
LOC: ER 16:58
PROVIDERS: Student in an Organized Health Care Education/Training Program
DX: T83.091A Other mechanical complication of indwelling urethral catheter, initial encounter (principal); N39.0 Urinary tract infection, site not specified; E11.9 Type 2 diabetes mellitus without complications; I10 Essential (primary) hypertension; Z79.899 Other long term (current) drug therapy
CPT/HCPCS: 51702; 81001; 87086; 99283; A9270

== ENCOUNTER → 2024-09-02 | Outpatient (CLI) | payer MEDICARE ==
[~2024-09-02] MED LIST changes: +SULTRIDS PO
[2024-09-02 16:02] LABS: Source, Urine Foley catheter
[2024-09-02 17:33] LABS: Blood, Urine 4+ (Neg); Glucose Qualitative, Urine 2+ (Neg); Ketones, Urine Neg (Neg); Leukocyte Esterase, Urine 3+ (Neg); Nitrite, Urine Pos (Neg); Protein, Urine 2+ (Neg); Urobilinogen, Urine 2+ (Normal)
[2024-09-02 17:55] LABS: Bilirubin, Urine 2+ (Neg)
[2024-09-02 17:57] LABS: Appearance, Urine Cloudy (Clear); Color, Urine Yellow (P-Yellow)
== END ==
LOC: LAB 16:00 → LAB SHORT 16:00
PROVIDERS: Family Medicine
DX: R39.9 Unspecified symptoms and signs involving the genitourinary system (principal)
CPT/HCPCS: 87077; 87086; 87186

== ENCOUNTER → 2024-09-24 | Outpatient (CLI) | payer MEDICARE | LOC: LAB SHORT 15:06 → LAB 15:06 | DX: N39.0 Urinary tract infection, site not specified (principal); A49.9 Bacterial infection, unspecified | CPT/HCPCS: 87077; 87086; 87186 ==

== ENCOUNTER → 2024-10-14 | Outpatient (CLI) | payer MEDICARE ==
[2024-10-14 18:57] LABS: Creatinine, Urine Random 43.3 mg/dL (27.00-270.00)
[2024-10-14 19:36] LABS: Microalb/Creat Ratio UR, Rand 1184.76 mg/g (0.000-30.000)
== END | disposition home or self-care (01) ==
LOC: LAB 11:44 → LAB SHORT 11:44
PROVIDERS: Family Medicine
DX: N39.0 Urinary tract infection, site not specified (principal); E11.9 Type 2 diabetes mellitus without complications
CPT/HCPCS: 82043; 82570; 87077; 87086; 87186

== ENCOUNTER → 2024-10-17 | Outpatient (CLI) | payer MEDICARE | LOC: LAB 16:34 → LAB SHORT 16:34 | DX: N39.0 Urinary tract infection, site not specified (principal) | CPT/HCPCS: 87086 ==

== ENCOUNTER → 2024-10-30 | Outpatient (CLI) | payer MEDICARE ==
[2024-10-30 19:06] LABS: Appearance, Urine Turbid (Clear); Bilirubin, Urine Neg (Neg); Blood, Urine 5+ (Neg); Glucose Qualitative, Urine Neg (Neg); Ketones, Urine Neg (Neg); Leukocyte Esterase, Urine 3+ (Neg); Nitrite, Urine Pos (Neg); Protein, Urine 3+ (Neg); Specific Gravity, Urine 1.015 (1.003-1.022); Urobilinogen, Urine NORM (Normal); pH, Urine 6.5 (5.0-8.0)
[2024-10-30 19:29] LABS: Color, Urine Pale Yellow (P-Yellow)
[2024-10-30 19:30] LABS: Bacteria Many /hpf; Red Blood Cells, Urine 50-100 /hpf (0-2); Squamous Epithelial Cells Few /hpf (Few); White Blood Cells, Urine TNTC /hpf (0-5)
== END ==
LOC: LAB 15:40 → LAB SHORT 15:40
PROVIDERS: Physician Assistant
DX: T83.9XXA Unspecified complication of genitourinary prosthetic device, implant and graft, initial encounter (principal)
CPT/HCPCS: 81001; 87077; 87086; 87186

== ENCOUNTER → 2024-11-13 | Outpatient (CLI) | payer MEDICARE | END | disposition home or self-care (01) | LOC: LAB SHORT 11:35 → LAB 11:35 | DX: T85.9XXA Unspecified complication of internal prosthetic device, implant and graft, initial encounter (principal); R82.992 Hyperoxaluria | CPT/HCPCS: 87077; 87086; 87186 ==

== ENCOUNTER → 2024-12-01 | Outpatient (CLI) | payer MEDICARE | LOC: LAB 16:39 → LAB SHORT 16:39 | DX: N39.0 Urinary tract infection, site not specified (principal) | CPT/HCPCS: 87077; 87086; 87186 ==

== ENCOUNTER → 2025-02-19 | Outpatient (CLI) | payer MEDICARE | LOC: LAB 11:26 → LAB SHORT 11:26 | DX: Z46.6 Encounter for fitting and adjustment of urinary device (principal); N39.0 Urinary tract infection, site not specified | CPT/HCPCS: 87077; 87086; 87186 ==

== ENCOUNTER 2025-04-16 18:11 | Emergency (ER) | payer MEDICARE ==
[~2025-04-16] VITALS: Ht 177.8 cm; Wt 70.3 kg
[2025-04-16 18:46] VITALS: BP 149/70
[2025-04-16] MEDS ORDERED: Lidocaine 2% Jelly Uro-Jet UR ONE (19:25)
[2025-04-16 19:57] LABS: Source, Urine Foley catheter
[2025-04-16 20:02] LABS: Glucose Qualitative, Urine Neg (Neg); Ketones, Urine Neg (Neg); Leukocyte Esterase, Urine 3+ (Neg); Protein, Urine 1+ (Neg); Specific Gravity, Urine 1.020 (1.003-1.022); Urobilinogen, Urine 3+ (Normal)
[2025-04-16 20:14] LABS: Bilirubin, Urine 2+ (Neg); Color, Urine Orange (P-Yellow)
[2025-04-16 20:15] LABS: White Blood Cells, Urine 25-50 /hpf (0-5)
== END 2025-04-16 20:28 | disposition home or self-care (01) ==
LOC: ER 18:11
PROVIDERS: Student in an Organized Health Care Education/Training Program
DX: T83.091A Other mechanical complication of indwelling urethral catheter, initial encounter (principal); Z79.899 Other long term (current) drug therapy; Z88.8 Allergy status to other drugs, medicaments and biological substances
CPT/HCPCS: 51702; 81001; 87077; 87086; 87186; 99283

== ENCOUNTER → 2025-06-03 | Outpatient (CLI) | payer MEDICARE | LOC: LAB 14:30 | DX: R30.0 Dysuria (principal) ==